=== PATIENT | female | born 1985 | race Caucasian/White ===

== ENCOUNTER → 2016-11-18 | Outpatient (CLI) | payer OTHER ==
[~2016-11-18] MED LIST: Motrin PO
== END | disposition home or self-care (01) ==
LOC: RAD 15:19
PROC: 0UJ87ZZ Inspection of Fallopian Tube, Via Natural or Artificial Opening (ICD-10-PCS; principal; 2016-11-18)
PROC: BU18YZZ Fluoroscopy of Uterus and Fallopian Tubes using Other Contrast (ICD-10-PCS; 2016-11-18)
PROC: 0UJD7ZZ Inspection of Uterus and Cervix, Via Natural or Artificial Opening (ICD-10-PCS; 2016-11-18)
DX: Z31.41 Encounter for fertility testing (principal)
CPT/HCPCS: 74740

== ENCOUNTER 2017-10-19 13:22 | Inpatient (IN) | payer OTHER ==
[~2017-10-19] VITALS: Ht 160 cm; Wt 91.0 kg
[2017-10-19] VITALS (14 sets, daily range): BP systolic 104–132; BP diastolic 57–89
[2017-10-19] MEDS ORDERED: PRENATAL TABLE1 EAC3 PO (14:11)
[2017-10-19] MEDS ORDERED: BENADRYL25 MG PO (14:12)
[2017-10-19 15:12] LABS: EOSINOPHIL (%) 0.5 % (0-5); EOSINOPHIL COUNT 0.1 K/uL (0-0.3); HEMATOCRIT 36.6 % (36.0-46.0); IMMATURE GRANULOCYTE (%) 0.4 % (0.0-0.7); INSTRUMENT ABS NEUTROPHIL CT 7.4 K/uL; LYMPHOCYTE COUNT 1.5 K/uL (1.0-2.8); MCH 32.4 PG (29.0-34.0); MCHC 35.2 G/DL (30.0-36.0); MONOCYTE (%) 4.9 % (3-12); MONOCYTE COUNT 0.5 K/uL (0-0.8); NEUTROPHIL (%) 78.1 % (45-76); NEUTROPHIL COUNT 7.4 K/uL (1.8-6.4); PLATELET COUNT 188 K/uL (156-360); RBC DIS.WIDTH-CV 13.2 % (11.8-14.6); RBC DIS.WIDTH-SD 44.6 % (39-53); RED BLOOD COUNT 3.98 M/uL (3.80-5.20); WHITE BLOOD COUNT 9.4 K/uL (4.1-10.2)
[2017-10-20] VITALS (17 sets, daily range): BP systolic 88–139; BP diastolic 54–88
[2017-10-20] MEDS ORDERED: IBUPROFEN800 MG PO (05:27)
[2017-10-21 07:51] VITALS: BP 121/77
[2017-10-21 16:42] VITALS: BP 116/78
[2017-10-21 23:09] VITALS: BP 130/86
== END 2017-10-22 12:14 | disposition home or self-care (01) | DRG 775 ==
LOC: LDRP-OP 13:22 → 2WEST 13:23 → LDRP-OP 11-11 11:26
PROVIDERS: Advanced Practice Midwife
DX: O70.0 First degree perineal laceration during delivery (principal); O40.3XX0 Polyhydramnios, third trimester, not applicable or unspecified; O48.0 Post-term pregnancy; Z3A.41 41 weeks gestation of pregnancy; Z37.0 Single live birth
CPT/HCPCS: 85025; C1755; G0378; J0595; J7120

== ENCOUNTER → 2017-11-21 | Outpatient (CLI) | payer OTHER ==
[~2017-11-21] MED LIST changes: +BENADRYL25 MG PO; +IBUPROFEN800 MG PO; +PRENATAL TABLE1 EAC3 PO
== END | disposition home or self-care (01) ==
LOC: LAC 10:29
DX: Z39.1 Encounter for care and examination of lactating mother (principal)
CPT/HCPCS: G0463